=== PATIENT | male | born 1985 | race Caucasian/White ===

== ENCOUNTER 2016-06-27 19:34 | Emergency (ER) | payer SELFPAY ==
--- NOTE | 2016-06-28 11:32 | ER ---
ADMIT: 06/27/2016 RM/LOC: ER [facility] MR#: [id number] [facility] [address], [place] [address] SOPHIA BENNETT [address] [place] [address] Emergency Room Report SEX: M AGE: 31 : 1985 DATE: 06/27/2016 CHIEF COMPLAINT: Injury to right hand. HISTORY OF PRESENT ILLNESS: This is a pleasant 31-year-old male, who presents to us after he dropped a glass of coffee pot on his right hand. The patient states he sustained cuts to his right hand as well as his right ring and small finger. States this happened just prior to arrival at home when he was cleaning up the kitchen. Denies any other injuries. Denies any numbness or tingling in the distal extremity. COURSE IN THE EMERGENCY ROOM: The patient was seen and examined. No obvious foreign body. On external exam, he does have some tenderness of soft tissue about the laceration. Does have a 1 cm laceration over the proximal aspect of the 5th finger on the right hand as well as 1 cm laceration just proximal to the 4th digit on the right hand. He also has a flap-like 0.5 cm laceration over the dorsal aspect of the right hand. No other injuries noted. Sensation is intact in the distal extremities. In the hand, cap refill is brisk. Tendon function is normal. Flexion and extension of the 4th and 5th digits. No obvious extensor tendon involvement. First the laceration repair to the right 5th digit. This is a clean linear laceration to the proximal aspect of the 5th digit. It is neurovascularly intact. It was anesthetized with 2 mL of lidocaine with epinephrine. Cleaned with Betadine x3, thoroughly irrigated with saline. The wound was explored to the base in a bloodless field. There was no obvious glass identified during exam. Strength was intact. It was repaired using four 5-0 Prolene sutures. Wound edges were well everted. PROCEDURE NOTE: This is a 1 cm laceration just proximal to the right 4th digit. Neurovascularly intact. It was anesthetized with 2 mL of lidocaine with epinephrine, cleaned with Betadine and thoroughly irrigated with saline. It was explored to the base in a bloodless field. No obvious glass identified in this wound. It was repaired using four 5-0 Prolene sutures. Wound edges were well everted. Next, he was also given 500 mg of p.o. Keflex prior to discharge. ADMIT: 06/27/2016 RM/LOC: ER [facility] MR#: [id number] [address] [id number] SOPHIA BENNETT [address] [place] [address] [address] [place] [address] Emergency Room Report SEX: M AGE: 31 : 1985 IMPRESSION: Laceration to the right 5th finger as well as the laceration to the right 4th finger. DISPOSITION: The patient was discharged to follow up with Dr. Dumas in 5 to 7 days to have sutures removed. He was started on a course of Keflex 500 mg p.o. b.i.d. for 5 days. He is to apply ice as needed to the laceration, certainly monitor for any signs or symptoms consistent with infection, although we are starting him on p.o. antibiotics. He is to return to Dr. Dumas with any foreign body sensation. Questions were sought and answered to the best of my ability and to the patient's satisfaction. Discharged in stable condition. RUDOLPH Inman / Darell Byers MD / lorenzo JOB #: [id number] CC: Darell Byers MD, Attending Physician Tod Dumas MD, Family Physician
== END 2016-06-27 20:58 | disposition home or self-care (01) ==
LOC: ER 19:34
PROC: 0HQFXZZ Repair Right Hand Skin, External Approach (ICD-10-PCS; principal; 2016-06-27)
DX: S61.214A Laceration without foreign body of right ring finger without damage to nail, initial encounter (principal); S61.216A Laceration without foreign body of right little finger without damage to nail, initial encounter; W25.XXXA Contact with sharp glass, initial encounter; Y92.009 Unspecified place in unspecified non-institutional (private) residence as the place of occurrence of the external cause